=== PATIENT | male | born 1990 | race Caucasian/White ===

== ENCOUNTER 2020-06-09 07:38 | Emergency (ER) | payer OTHER ==
[2020-06-09 07:55] LABS: BASOPHIL 0.4 % (0-2); EOSINOPHIL 2.7 % (0-5); HCT 42.5 % (42.0-52.0); HGB 13.7 g/dl (13.2-18.0); LYMPHOCYTE 58.9 % (15-48); MCH 29.2 pg (25.0-31.0); MCHC 32.2 g/dL (32.0-36.0); MCV 90.6 fL (78.0-100.0); MONOCYTE 7.6 % (0-12); MPV 11.5 fL (6.0-9.5); NEUTROPHIL 29.8 % (41-80); NRBC 0; PLT 203 K/uL (150-400); RBC 4.69 M/uL (4.70-6.00); RDW 13.2 % (11.5-14.0); WBC 7.1 K/uL (4.0-10.5)
[2020-06-09 08:00] LABS: INR 1.19 (0.9-1.2); PROTHROMBIN TIME 14.3 SECONDS (11.4-13.6); PTT 30.1 SECONDS (22.2-34.7)
[2020-06-09 08:41] LABS: ALBUMIN 3.2 g/dL (3.4-5.0); ALKALINE PHOSHATASE 63 U/L (46-116); ALT 63 U/L (16-63); AST 75 U/L (15-37); BILIRUBIN - TOTAL 0.3 mg/dL (0.2-1.0); BUN 17 mg/dL (7-18); CHLORIDE 102 mmol/L (98-107); CO2 (BICARBONATE) 17 mmol/L (21-32); CPK 890 U/L (39-308); CREATININE 1.06 mg/dL (0.67-1.17); GLOBULIN (CALCULATION) 2.6 g/dL; GLUCOSE 332 mg/dL (74-106); MAGNESIUM 2.5 mg/dL (1.8-2.4); TOTAL PROTEIN 5.8 g/dL (6.4-8.2)
[2020-06-09 08:53] LABS: BILIRUBIN NEGATIVE (NEGATIVE); BLOOD 1+ Ery/uL (NEGATIVE); CLARITY CLEAR (CLEAR); COLOR YELLOW (YELLOW); GLUCOSE (U) 1+ mg/dL (NORMAL); LEUKOCYTES NEGATIVE Leu/uL (NEGATIVE); NITRITE NEGATIVE (NEGATIVE); PROTEIN 3+ mg/dL (NEGATIVE); UROBILINOGEN 0.2 mg/dL (0.2-1.0)
[2020-06-09 08:54] LABS: CORONAVIRUS 2019 SARS-COV-2 NEGATIVE (NEGATIVE); INFLUENZA A NAA NEGATIVE (NEGATIVE)
[2020-06-09 08:57] LABS: AMPHETAMINES NEGATIVE (NEGATIVE); BARBITURATES NEGATIVE (NEGATIVE); ECSTASY (MDMA) NEGATIVE (NEGATIVE); MARIJUANA (THC) NEGATIVE (NEGATIVE); METHADONE NEGATIVE (NEGATIVE); OPIATES NEGATIVE (NEGATIVE); OXYCODONE NEGATIVE (NEGATIVE)
[2020-06-09 09:07] LABS: BACTERIA 1+
== END 2020-06-09 09:11 | disposition other institution (70) ==
LOC: FER 07:38
PROVIDERS: Emergency Medicine
DX: I46.9 Cardiac arrest, cause unspecified (principal); J69.0 Pneumonitis due to inhalation of food and vomit; I49.01 Ventricular fibrillation; Z20.822 Contact with and (suspected) exposure to COVID-19
CPT/HCPCS: 36415; 36600; 70450; 71275; 80053; 80305; 81001; 82550; 82728; 82803; 83605; 83735; 83880; 84145; 84484; 85025; 85610; 85730; 93005; 96374; 96375; G0480; J1953; J2060; J2543; U0002